=== PATIENT | female | born 1995 | race Caucasian/White ===

== ENCOUNTER → 2018-06-17 | Outpatient (CLI) | payer OTHER | LOC: FIMAGING 09:52 | PROVIDERS: ATTEND Advanced Practice Midwife | DX: O26.813 Pregnancy related exhaustion and fatigue, third trimester (principal); O48.0 Post-term pregnancy; Z3A.41 41 weeks gestation of pregnancy ==

== ENCOUNTER 2018-06-20 21:48 | Inpatient (IN) | payer OTHER ==
[2018-06-20] MEDS ORDERED: fentaNYL 100 MCG/2 ML INJ IVP ONE ×2 (22:00→22:28)
--- NOTE | 2018-06-20 22:32 | PDGENHP ---
History and Physical History and Physical: Care: [facility] HPI: Patient is a 23 yo with IUP @ 41-3 weeks that presents to L&D from [facility] for pain relief and possible protracted labor. Pt states contractions started on 06/19/18 @ 1630. She has been at the [facility] at 0000. She was in early labor and SROM was noted at 1540. She was noted to be 6cm at 1845 and pt is now desiring pain relief. She denies any VB. She reports + FM. EDC: 06/10/18 which is based on LMP: 09/03/2017 which is known and consistent with Ultrasound at 20 weeks. Her is complicated by: MTHFR, GBS+, anemia Review of Systems: Constitutional: Denies any fever, chills, or fatigue HEENT: denies any visual changes, difficulty swallowing, hearing loss Cardiovascular: Denies any chest pain, palpitations, leg swelling Respiratory: denies any cough, wheezing, or shortness of breathe GI: Denies any nausea, vomiting, diarrhea, constipation : denies any dysuria, urgency, frequency, vaginal bleeding Musculoskeletal: denies any muscle or bone pain, +leg pain (likely nerve) Skin: denies any rashes Neuro: denies any headache, seizures, lightheadedness, dizziness, or loss of consciousness Psychiatric: denies any depression, anxiety, or SI/HI thoughts HISTORY: Previous OB history: SAB x3 (2014x2,2017) Past medical history: narcolepsy, MTHFR Past surgical history: eye, oral, nose Social: Denies any alcohol, tobacco, or drug use. Family history: Not relevant Medications: PNV, methyl folate Allergies (list reaction): doxycycline LABS: Rh: A+ ABS: Neg Rubella: Immune HbsAg: NR HIV: NR VDRL: NR 1hr: 99 GC: Neg Chlamydia: Neg Pap: Normal GBS: + PHYSICAL EXAM: Constitutional: WN, A&Ox3 HEENT: normocephalic atraumatic, supple Skin: Warm, dry, intact Heart: RRR, no murmur Chest: CTA-B Abdomen: Soft, nontender, gravid SVE: 6/80/-2 (per [facility] CNM) Extremities: 2+ edema, negative Lilia's sign Neuro: grossly normal Psych: normal affect assessment: FHT baseline 130 +accels, no decels, moderate variability Contractions: toco q 2-3 Assessment: 1) [id number] with IUP@41-3wks 2) active labor, possible protracted labor? 3) GBS positive 4) Cat 1 FHR tracing 5) SROM- clear Plan: 1) Admit to L&D 2) pain management kamini 3) cont abx 4) consider placement of IUPC/use of pitocin 5) reassess 2-4hr/PRN Today's visit was approximately 45 min, of which >50% of visit 30 min, was spent face to face with pt on direct counseling/coordination of care.
[2018-06-20 22:35] LABS: PLATELET COUNT 216 10^3/uL (150-400)
[2018-06-20] MEDS ORDERED: PHENYLEPHRINE HCL 100 MCG/ML SYR ONE (22:40)
[2018-06-20] MEDS ORDERED: fentaNYL 2MCG/ML/BUP 0.1% RTU 100 ML BAG EP ONE (22:40)
--- NOTE | 2018-06-20 23:30 | PREANESOB ---
Obstetric Pre-Anesthesia Info - Info Status: Full Term, Khoury Monitors: External FHR Pattern: Reassuring - Labor Status Indications for Labor Analgesia: Pain Control Labor Epidural: Proposed Anesthesia Allergies/Adverse Reactions: Allergy/AdvReac Type Severity Reaction Status Date / Time doxycycline Allergy Verified 06/20/18 21:57 Visit Medications: Generic Name Dose Route Start Last Admin Trade Name Freq PRN Reason Stop Dose Admin Ampicillin Sodium 1 gm/ Sodium 100 mls @ 200 mls/hr 06/20/18 23:59 Chloride IV 07/20/18 23:58 Q4H MONIQUE Protocol Discontinued Medications Generic Name Dose Route Start Last Admin Trade Name Freq PRN Reason Stop Dose Admin Fentanyl 50 mcg 06/20/18 22:00 06/20/18 22:07 Sublimaze IVP 06/20/18 22:01 50 mcg ONCE ONE Administration Fentanyl 100 mcg 06/20/18 22:28 06/20/18 22:37 Sublimaze IVP 06/20/18 22:29 100 mcg ONCE ONE Administration Fentanyl/Bupivacaine HCl Confirm 06/20/18 22:40 Fentanyl/Bupivacaine/Ns 2 Mcg/Ml 0.1% (Premix Administered 06/20/18 22:41 Dose 100 ml EP .STK-MED ONE Phenylephrine HCl Confirm 06/20/18 22:40 Neosynephrine Administered 06/20/18 22:41 Dose 1,000 mcg .ROUTE .STK-MED ONE - Anesthesia History Response to Local Anesthetics: Normal Anesthesia & Operative History: No Prior Problems - Focused Exam Neck exam: FROM Mallampati Score: Class 2 Mouth exam: normal dental/mouth exam Pulmonary: no respiratory distress, no rales or rhonchi, clear to auscultation Cardiovascular: regular rate and rhythym, no murmur, rub, or gallop Labs: 06/20/18 22:20 06/20/18 22:20 Uric Acid 6.4 mg/dL (2.5-6.8) 06/20/18 22:20 Total Bilirubin 1.0 mg/dL (0.1-1.4) 06/20/18 22:20 Conjugated Bilirubin 0.2 mg/dL (0.0-0.5) 06/20/18 22:20 Unconjugated Bilirubin 0.8 mg/dL (0.0-1.1) 06/20/18 22:20 AST 25 IU/L (14-46) 06/20/18 22:20 ALT 31 IU/L (9-52) 06/20/18 22:20 Lactate Dehydrogenase 594 IU/L (313-618) 06/20/18 22:20
[2018-06-20] MEDS ORDERED: PHENYLEPHRINE HCL 100 MCG/ML SYR IVP PRN (23:31)
[2018-06-20] MEDS ORDERED: LR 500 ML IV SCH (23:45)
[2018-06-20] MEDS ORDERED: fentaNYL 2MCG/ML/BUP 0.1% RTU 100 ML EP SCH (23:45)
[2018-06-21] MEDS: AMPICILLIN SODIUM 1 GM in NS 100 ML IV SCH ×3 (00:08→08:00)
[2018-06-21] MEDS ORDERED: OLIVE OIL 118 ML BTL ONE (00:28)
[2018-06-21] MEDS ORDERED: LIDOCAINE 1% 300 MG/30 ML SDV ONE (00:28)
[2018-06-21] MEDS ORDERED: AMMONIA AROMATIC 1 EACH AMP IH ONE (00:28)
[2018-06-21] MEDS ORDERED: OXYTOCIN 10 UNIT/ML VIAL ONE (00:29)
[2018-06-21] MEDS ORDERED: MISOPROSTOL 200 MCG TAB ONE (00:29)
[2018-06-21] MEDS ORDERED: TERBUTALINE SULFATE 1 MG/ML VIAL ONE (00:29)
--- NOTE | 2018-06-21 00:35 | OBPROG ---
Labor Progress Note Assessment/Plan: Assessment: [id number] with IUP@41-3wks protracted labor/possible asynclitic presentation GBS+ DAISY in place SROM- clear IUPC placed Plan: allow pt to rest/will start pitocin in 4 hrs cont IV abx reassess 2-4hr/PRN 06/21/18 00:31 06/21/18 00:37 Subjective/Intrapartum Course: 06/21/18 00:33 Pt now comfortable with DAISY. She denies any pain. She desires to rest now, agreeable to pitocin after 3 hours. Cayetano, FOB, at BS and supportive. Objective: 06/20/18 22:20 06/20/18 22:20 Patient ABO/Rh A POSITIVE 06/20/18 22:20 Uric Acid 6.4 mg/dL (2.5-6.8) 06/20/18 22:20 Total Bilirubin 1.0 mg/dL (0.1-1.4) 06/20/18 22:20 Conjugated Bilirubin 0.2 mg/dL (0.0-0.5) 06/20/18 22:20 Unconjugated Bilirubin 0.8 mg/dL (0.0-1.1) 06/20/18 22:20 AST 25 IU/L (14-46) 06/20/18 22:20 ALT 31 IU/L (9-52) 06/20/18 22:20 Lactate Dehydrogenase 594 IU/L (313-618) 06/20/18 22:20 - SVE Dilation (cm): 5 Effacement (%): 80 Station: -2 Membranes: SROM Amniotic Fluid Color: Clear - Contraction Pattern Assessment Current Contraction Pattern: Irregular - FHR Assessment Khoury FHR (bpm): 125 FHR Pattern Variability: Moderate FHR Category: 1 - Procedures Non-surgical Procedures: IUPC Oxytocin Orders Assessment - Pre-Induction/Augmentation Assessment Presentation: Vertex Gestational Age: 41 week(s) and 3 day(s) Membrane Status: Ruptured Current Contraction Pattern: Irregular - Heart Rate Pattern Khoury FHR Baseline (bpm): 125 FHR Category: 1 FHR Pattern Variability: Moderate FHR Accelerations: Present - Bridges's Score Dilation: 5-6cm Effacement: 80+ Station: -2 Cervix: Medium Cervix Position: Mid Bridges Score Total: 9 - Induction/Augmentation Consent Risks/Benefits of Procedure Reviewed/Pt Agrees to Proceed: Yes ICD10 Worksheet Patient Problems: Problems Problem Status Onset Labor and delivery, indication for care Acute Positive GBS test Acute - ICD10 Problem Qualifiers (1) Labor and delivery, indication for care (2) Positive GBS test
[2018-06-21] MEDS ORDERED: LR 500 ML IV PRN (00:48)
[2018-06-21] MEDS ORDERED: OXYTOCIN/RINGERS LACTATE 500 ML IV SCH (01:00)
--- NOTE | 2018-06-21 01:07 | POSTANESTH ---
Post Anesthetic Evaluation Cardiovascular Status: Normal, Stable, Similar to Pre-Op Cond Respiratory Status: Normal, Stable, Similar to Pre-op Cond. Level of Consciousness/Mental Status: Can Participate in Eval, Alert and Oriented Pain Control: Adequate, Prn Tx Ordered Nausea/Vomiting Control: Adequate, Prn Tx Ordered Complications Possibly Related to Anesthesia: None Noted (Excellent analgesia, though it took longer than usual to reach her lower abdomen.)
--- NOTE | 2018-06-21 03:57 | OBPROG ---
Labor Progress Note Assessment/Plan: Assessment: [id number] with IUP@41-3wks protracted labor/possible asynclitic presentation GBS+ DAISY in place SROM- clear IUPC placed Plan: start pitocin at this time reassess PRN Subjective/Intrapartum Course: 06/21/18 00:33 Pt now comfortable with DAISY. She denies any pain. She desires to rest now, agreeable to pitocin after 3 hours. Cayetano, FOB, at BS and supportive. 06/21/18 03:55 Pt resting comfortably. Denies any pain. Agreeable to pitocin. Objective: 06/20/18 22:20 06/20/18 22:20 Patient ABO/Rh A POSITIVE 06/20/18 22:20 Uric Acid 6.4 mg/dL (2.5-6.8) 06/20/18 22:20 Total Bilirubin 1.0 mg/dL (0.1-1.4) 06/20/18 22:20 Conjugated Bilirubin 0.2 mg/dL (0.0-0.5) 06/20/18 22:20 Unconjugated Bilirubin 0.8 mg/dL (0.0-1.1) 06/20/18 22:20 AST 25 IU/L (14-46) 06/20/18 22:20 ALT 31 IU/L (9-52) 06/20/18 22:20 Lactate Dehydrogenase 594 IU/L (313-618) 06/20/18 22:20 - SVE Membranes: SROM Amniotic Fluid Color: Clear - Contraction Pattern Assessment Current Contraction Pattern: Irregular - FHR Assessment Khoury FHR (bpm): 125 (+accels, no decels) FHR Pattern Variability: Moderate FHR Category: 1 - Procedures Non-surgical Procedures: IUPC Oxytocin Orders Assessment - Pre-Induction/Augmentation Assessment Presentation: Vertex Gestational Age: 41 week(s) and 3 day(s) ICD10 Worksheet Patient Problems: Problems Problem Status Onset Labor and delivery, indication for care Acute Positive GBS test Acute - ICD10 Problem Qualifiers (1) Labor and delivery, indication for care (2) Positive GBS test
[2018-06-21] MEDS ORDERED: ONDANSETRON 4 MG/2 ML VIAL IVP PRN (05:44)
[2018-06-21] MEDS ORDERED: DOCUSATE SODIUM 100 MG CAP PO PRN (07:25)
--- NOTE | 2018-06-21 07:31 | OBDEL ---
Info Type: Vaginal Presentation at Delivery: Vertex L&D Analgesia/Anesthesia Type: Epidural GBS+: Yes Antibiotic Used for + GBS: Ampicillin Intrapartum Medications: Generic Name Dose Route Start Last Admin Trade Name Saloni PRN Reason Stop Dose Admin Ampicillin Sodium 1 gm/ Sodium 100 mls @ 200 mls/hr 06/20/18 23:59 06/21/18 03:51 Chloride IV 07/20/18 23:58 100 mls Q4H MONIQUE Administration Protocol Fentanyl/Bupivacaine HCl 100 mls @ 0 mls/hr 06/20/18 23:45 06/21/18 05:10 Fentanyl/Bupivacaine/Ns 2 Mcg/Ml 0.1% (Premix EP 06/30/18 23:44 100 mls CONT MONIQUE Administration Protocol As Directed Lactated Ringer's 500 mls @ 0 mls/hr 06/20/18 23:45 06/21/18 00:08 Lr IV 12/17/18 23:44 500 mls CONT MONIQUE Administration As Directed Oxytocin/Lactated Ringer's 500 mls @ 0 mls/hr 06/21/18 01:00 06/21/18 03:51 Pitocin 30 Units/Lr (Premix) IV 12/18/18 00:59 500 mls CONT MONIQUE Administration Protocol Per Protocol Ondansetron HCl 4 mg 06/21/18 05:44 06/21/18 05:54 Zofran IVP 12/18/18 05:43 4 mg Q4HRS PRN Administration Nausea/Vomiting, Can't Take PO Phenylephrine HCl 100 mcg 06/20/18 23:31 06/21/18 02:00 Neosynephrine IVP 12/17/18 23:30 100 mcg .Q2M PRN Administration Hypotension Discontinued Medications Generic Name Dose Route Start Last Admin Trade Name Saloni PRN Reason Stop Dose Admin Fentanyl 50 mcg 06/20/18 22:00 06/20/18 22:07 Sublimaze IVP 06/20/18 22:01 50 mcg ONCE ONE Administration Fentanyl 100 mcg 06/20/18 22:28 06/20/18 22:37 Sublimaze IVP 06/20/18 22:29 100 mcg ONCE ONE Administration - Hospital Course Intrapartum: 06/21/18 00:33 Pt now comfortable with DAISY. She denies any pain. She desires to rest now, agreeable to pitocin after 3 hours. DARSHANA MonteiroB, at BS and supportive. 06/21/18 03:55 Pt resting comfortably. Denies any pain. Agreeable to pitocin. Indications for Delivery: Spontaneous Labor, SROM Vaginal Delivery - Delivery Provider Delivery Physician/CNM: Jessica Edwards - Labor and Delivery Onset of Contractions Date: 06/19/18 Onset of Contractions Time: 16:30 Onset of Contractions Type: Spontaneous Rupture of Membranes Date: 06/20/18 Rupture of Membranes Time: 15:40 Rupture of Membranes Type: Artificial Amniotic Fluid Color: Clear Dilation Complete Date: 06/21/18 Dilation Complete Time: 06:23 Placenta Delivery Date: 06/21/18 Placenta Delivery Time: 06:51 Total Hours of Labor: 38 Non-surgical Procedures: IUPC Laceration: 2nd Degree, Other (Specify) (bilateral labial lacerations, left sulcus tear, 2nd degree vaginal) Repair: 3-0, 4-0, Vicryl Vaginal Sponge Count Correct: Yes Vaginal Needle Count Correct: Yes Vaginal Sweep Performed: Yes EBL: 300 Delivery Comment: delivered without difficulty. spontaneous cry. baby to mothers chest. - Medications Labor Augmentation/Induction Methods Used: Pitocin Labor Augmentation/Induction Indication: Inadequate Ctx Strength Ophelia Data SIRI: 06/10/18 Gestational Age: 41 week(s) and 4 day(s) Khoury Delivery Date: 06/21/18 Delivery Time: 06:41 Sex of : Female Score (1 Min): 8 Score (5 Min): 9 ICD10 Worksheet Patient Problems: Problems Problem Status Onset Labor and delivery, indication for care Acute Positive GBS test Acute - ICD10 Problem Qualifiers (1) Labor and delivery, indication for care (2) Positive GBS test
[2018-06-21] MEDS: ACETAMINOPHEN 325 MG TAB PO SCH ×2 (08:03→17:02)
[2018-06-21 11:59] VITALS: BP 103/65
[2018-06-21] MEDS ORDERED: IBUPROFEN 600 MG TAB PO SCH (13:25)
--- NOTE | 2018-06-21 15:54 | OBPP ---
Progress Note Assessment/Plan: Assessment: 1) of viable female 2) second degree laceration 3) breast feeding Plan: D/C home today. 06/21/18 15:54 Subjective/ Course: 06/21/18 15:52 Pt transferred from [facility] for pain relief. after epidural anesthesia. PT is breast feeding well, pain management is effective. She desires early d/c today. Objective: 06/20/18 22:20 06/20/18 22:20 Patient ABO/Rh A POSITIVE 06/20/18 22:20 Uric Acid 6.4 mg/dL (2.5-6.8) 06/20/18 22:20 Total Bilirubin 1.0 mg/dL (0.1-1.4) 06/20/18 22:20 Conjugated Bilirubin 0.2 mg/dL (0.0-0.5) 06/20/18 22:20 Unconjugated Bilirubin 0.8 mg/dL (0.0-1.1) 06/20/18 22:20 AST 25 IU/L (14-46) 06/20/18 22:20 ALT 31 IU/L (9-52) 06/20/18 22:20 Lactate Dehydrogenase 594 IU/L (313-618) 06/20/18 22:20 Temp Pulse Resp BP Pulse Ox 36.3 C 69 18 103/65 98 06/21/18 11:15 06/21/18 11:15 06/21/18 11:15 06/21/18 11:15 06/21/18 11:15 VSS Uterine Position/Fundal Height: At Umbilicus Uterine Tone: Firm
--- NOTE | 2018-06-22 11:07 | OBGCSDC ---
General Delivery Information - General Info : 4 Para: 1 Abortions: 3 Type: Vaginal L&D Analgesia/Anesthesia Type: Epidural Admission Date: 06/20/18 Labs: Patient ABO/Rh A POSITIVE 06/20/18 22:20 Hct 39.3 % (38.0-47.0) 06/20/18 22:20 - Hospital Course Intrapartum: 06/21/18 00:33 Pt now comfortable with DAIYS. She denies any pain. She desires to rest now, agreeable to pitocin after 3 hours. Cayetano, FOB, at BS and supportive. 06/21/18 03:55 Pt resting comfortably. Denies any pain. Agreeable to pitocin. : 06/21/18 15:52 Pt transferred from [facility] for pain relief. after epidural anesthesia. PT is breast feeding well, pain management is effective. She desires early d/c today. Vaginal - Delivery Provider Delivery Physician/CNM: Jessica Edwards - Diagnosis Labor: Spontaneous Rupture of Membranes Type: Artificial Amniotic Fluid Color: Clear Laceration: 2nd Degree, Other (Specify) (bilateral labial lacerations, left sulcus tear, 2nd degree vaginal) Repair: 3-0, 4-0, Vicryl - Procedures Non-surgical Procedures: IUPC - Delivery Non-surgical Procedures: IUPC EBL: 300 Elmo Data SIRI: 06/10/18 Gestational Age: 41 week(s) and 5 day(s) Khoury Delivery Date: 06/21/18 Delivery Time: 06:41 Sex of Infant: Female Weight (gm): 3952 kg Score (1 Min): 8 Score (5 Min): 9 Discharge Information - Discharge Information Prescriptions: Ibuprofen [Motrin (*)] 600 mg PO Q6H #60 tab Condition: Good Instruction/Follow Up: See Instruction Sheet (follow-up with [facility] midwives or [facility] in 2 weeks.)
== END 2018-06-21 17:30 | disposition home or self-care (01) | DRG 775 ==
LOC: FLD 21:48 → FOB 06-21 10:00
PROVIDERS: ADMIT Advanced Practice Midwife; ATTEND Advanced Practice Midwife
PROC: 10907ZC Drainage of Amniotic Fluid, Therapeutic from Products of Conception, Via Natural or Artificial Opening (ICD-10-PCS; principal; 2018-06-20)
PROC: 0KQM0ZZ Repair Perineum Muscle, Open Approach (ICD-10-PCS; principal; 2018-06-20)
PROC: 10E0XZZ Delivery of Products of Conception, External Approach (ICD-10-PCS; principal; 2018-06-20)
DX: O70.1 Second degree perineal laceration during delivery (principal); O99.824 Streptococcus B carrier state complicating childbirth; O99.013 Anemia complicating pregnancy, third trimester; Z3A.41 41 weeks gestation of pregnancy; Z37.0 Single live birth
CPT/HCPCS: J0290; J2370; J2405; J2590; J3010; J3105